=== PATIENT | female | born 1980 | race Caucasian/White ===

== ENCOUNTER 2016-12-20 21:02 | Emergency (ER) | payer BC, OTHER ==
[~2016-12-20] VITALS: Ht 172.7 cm; Wt 114.2 kg
[2016-12-20] MEDS ORDERED: B12 IM (21:32)
[2016-12-20 22:17] LABS: BLOOD UREA NITROGEN 9 mg/dL (7-18)
[2016-12-20 22:39] VITALS: BP 148/86
== END 2016-12-20 22:37 | disposition home or self-care (01) ==
LOC: ED 22:30
DX: J20.9 Acute bronchitis, unspecified (principal); E03.9 Hypothyroidism, unspecified
CPT/HCPCS: 36415; 71020; 80048; 82040; 85025; 93005; 99285

== ENCOUNTER 2019-10-11 12:28 | Observation (INO) | payer BC ==
[~2019-10-11] VITALS: Ht 170.2 cm; Wt 83.0 kg
[~2019-10-11 12:28] MED LIST: B12 IM
[2019-10-11 13:48] LABS: MICROSCOPIC NOT IND
--- NOTE | 2019-10-11 13:53 | NUR ---
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 STEADY GAIT. NO ACUTE DISTRESS NOTED.
--- NOTE | 2019-10-11 14:00 | NUR ---
PT PRESENTS TO ED WITH C/O RUQ PAIN X ALMOST A WEEK. BECAME SEVERE TODAY. SOME NAUSEA WITH NO VOMITING NOTED. MILD AMOUNT OF DISRESS WITH MODERATE DISCOMFORT NOTED. IV STARTED. POC DISCUSSED.
[2019-10-11 14:15] LABS: BASOPHILS # (AUTO) 0.06 x10^3/uL (0-0.1); BASOPHILS % (AUTO) 1 % (0-1); EOSINOPHILS # (AUTO) 0.09 x10^3/uL (0-0.4); EOSINOPHILS % (AUTO) 1 % (1-7); LYMPHOCYTES # (AUTO) 1.73 x10^3/uL (1-3.4); LYMPHOCYTES % (AUTO) 23 % (22-44); MD NO; MEAN CORPUSCULAR HEMOGLOBIN 27.3 pg (27.0-34.8); MEAN CORPUSCULAR HGB CONC 33.7 g/dL (32.4-35.8); MEAN CORPUSCULAR VOLUME 81.1 fL (80-100); MEAN PLATELET VOLUME 8.1 fL (7.4-10.4); MONOCYTES # (AUTO) 0.46 x10^3/uL (0.2-0.8); MONOCYTES % (AUTO) 6 % (2-9); NEUTROPHILS # (AUTO) 5.14 x10^3/uL (1.8-6.8); NEUTROPHILS % (AUTO) 69 % (42-75); PLATELET COUNT 286 x10^3/uL (130-400); RED CELL DISTRIBUTION WIDTH 15.4 % (9.6-15.2)
[2019-10-11 14:19] LABS: CULTURE INDICATED? NO
[2019-10-11 14:20] LABS: ALBUMIN 3.4 g/dL (3.4-5.0); ANION GAP 4 mmol/L (5-15); CALCIUM 9.2 mg/dL (8.5-10.1); CHLORIDE 112 mmol/L (98-107)
[2019-10-11 14:24] LABS: ALANINE AMINOTRANSFERASE 34 U/L (12-78); ALKALINE PHOSPHATASE 84 U/L (45-117); BILIRUBIN,TOTAL 0.6 mg/dL (0.2-1.0); CREATININE 0.53 mg/dL (0.55-1.02)
[2019-10-11] MEDS ORDERED: HYDROmorphone 2 MG/ML, 1ML IVPush PRN ×2 (14:30→17:00)
[2019-10-11] MEDS ORDERED: ONDANSETRON 2MG/ML, 2ML IVPush ONE (14:30)
[2019-10-11] MEDS ORDERED: SODIUM CHLORIDE FLUSH 10ML SYR IVF ONE (14:30)
[2019-10-11] MEDS ORDERED: SODIUM CHLORIDE 0.9% 1,000ML IVBOLUS ONE (14:30)
[2019-10-11] MEDS ORDERED: HYDROmorphone 1 MG/ML, 1ML INJ ONE (14:31)
[2019-10-11] MEDS ORDERED: ONDANSETRON 2MG/ML, 2ML ONE ×3 (14:32→17:42)
--- NOTE | 2019-10-11 14:40 | NUR ---
PT IN CT, UNABLE TO MEDICATE.
[2019-10-11] MEDS ORDERED: OMNIPAQUE 350 MG/ML, 100ML BOTTLE ONE (14:55)
[2019-10-11] MEDS ORDERED: CEFOTETAN PMX 1GM/50ML 50 ML IV ONE (15:30)
[2019-10-11] MEDS ORDERED: FENTANYL PF 250 MCG/5ML ONE (16:19)
[2019-10-11] MEDS ORDERED: MIDAZOLAM 1 MG/ML, 2ML ONE (16:19)
[2019-10-11] MEDS ORDERED: KETOROLAC 30 MG/1 ML ONE (16:19)
--- NOTE | 2019-10-11 16:20 | NUR ---
Report to Surgery
[2019-10-11] MEDS ORDERED: ROCURONIUM 10MG/ML,5ML ONE (16:21)
[2019-10-11] MEDS ORDERED: SUCCINYLCHOLINE 20 MG/ML, 10ML ONE (16:21)
[2019-10-11] MEDS ORDERED: NEOSTIGMINE 1 MG/ML, 10ML ONE (16:21)
[2019-10-11] MEDS ORDERED: EPINEPHRINE 1 MG/ML, 1ML ONE ×2 (16:21→16:24)
[2019-10-11] MEDS ORDERED: CEFAZOLIN 1,000 MG ONE (16:21)
[2019-10-11] MEDS ORDERED: DEXAMETHASONE 4 MG/ML, 1ML ONE (16:21)
[2019-10-11] MEDS ORDERED: BUPIVACAINE/PF 0.5% ONE (16:21)
[2019-10-11] MEDS ORDERED: GLYCOPYRROLATE 0.2MG/1ML, 5ML ONE (16:21)
[2019-10-11] MEDS ORDERED: PROPOFOL 10 MG/ML, 20ML ONE (16:21)
--- NOTE | 2019-10-11 16:34 | NUR ---
Patient to surgery.
[2019-10-11] MEDS ORDERED: MORPHINE SULFATE 4 MG/ML, 1ML IVPush PRN ×2 (17:00→19:30)
[2019-10-11] MEDS ORDERED: PROMETHAZINE 25 MG/ML, 1ML IV PRN (17:00)
[2019-10-11] MEDS ORDERED: FENTANYL PF 100 MCG/2ML IV PRN (17:00)
[2019-10-11] MEDS ORDERED: LABETALOL 5MG/ML, 20ML IV PRN (17:00)
[2019-10-11] MEDS ORDERED: hydrALAzine 20 MG/ML, 1ML IV PRN ×2 (17:00→21:30)
[2019-10-11] MEDS ORDERED: HALOPERIDOL 5 MG/ML IV PRN (17:00)
[2019-10-11] MEDS ORDERED: MEPERIDINE/PF 25MG/ML,1ML IVPush PRN (17:00)
[2019-10-11] MEDS ORDERED: OXYcodone 5 MG/5 ML ORAL.SOL UDC PO PRN (17:00)
[2019-10-11] MEDS ORDERED: SUGAMMADEX 200 MG/2 ML IVPush ONE (17:14)
[2019-10-11] MEDS ORDERED: MEPERIDINE/PF 25MG/ML,1ML ONE (17:33)
[2019-10-11] MEDS ORDERED: hydrALAzine 20 MG/ML, 1ML ONE (17:44)
[2019-10-11] MEDS ORDERED: PROMETHAZINE 25 MG/ML, 1ML ONE (17:54)
[2019-10-11 18:45] VITALS: BP 144/92
[2019-10-11] MEDS ORDERED: DIPHENHYDRAMINE 50 MG/ML, 1ML IVPush PRN (19:30)
[2019-10-11] MEDS ORDERED: ONDANSETRON 2MG/ML, 2ML IVPush PRN (19:30)
[2019-10-11] MEDS: KETOROLAC 30 MG/1 ML IV PRN (19:38)
[2019-10-11] MEDS ORDERED: LISI-420 PO (20:35)
[2019-10-11] MEDS ORDERED: ACETAMINOPHEN 325 MG TABLET PO PRN (21:30)
[2019-10-11] MEDS ORDERED: DIPHENHYDRAMINE 50 MG/ML, 1ML IV PRN (21:30)
[2019-10-11] MEDS ORDERED: DIPHENHYDRAMINE 25 MG CAPSULE PO PRN (21:30)
[2019-10-11] MEDS ORDERED: LISINOPRIL 20 MG TABLET PO SCH (21:30)
[2019-10-11] MEDS ORDERED: ACETAMINOPHEN 650 MG SUPP PR PRN (21:30)
[2019-10-11] MEDS: LACTATED RINGERS 1,000 ML IV SCH (21:44)
[2019-10-11] MEDS ORDERED: ENOXAPARIN 40 MG/0.4 ML SQ SCH (22:00)
[2019-10-11] MEDS: HYDROcodone/APAP 5/325 TABLET PO PRN (22:20)
[2019-10-11 23:05] VITALS: BP 148/91
[2019-10-12] MEDS: KETOROLAC 30 MG/1 ML IV PRN (02:14)
[2019-10-12 03:25] VITALS: BP 149/81
[2019-10-12] MEDS: LACTATED RINGERS 1,000 ML IV SCH (05:30)
[2019-10-12 06:51] VITALS: BP 144/84
[2019-10-12] MEDS ORDERED: MIDAZOLAM 1 MG/ML, 2ML ONE (07:36)
[2019-10-12] MEDS ORDERED: FENTANYL PF 250 MCG/5ML ONE (07:36)
[2019-10-12] MEDS ORDERED: ROCURONIUM 10MG/ML,5ML ONE (07:37)
[2019-10-12] MEDS ORDERED: PROPOFOL 10 MG/ML, 20ML ONE (07:37)
[2019-10-12] MEDS ORDERED: DEXAMETHASONE 4 MG/ML, 1ML ONE (07:39)
[2019-10-12] MEDS ORDERED: FENTANYL PF 100 MCG/2ML IV PRN (08:00)
[2019-10-12] MEDS ORDERED: LABETALOL 5MG/ML, 20ML IV PRN (08:00)
[2019-10-12] MEDS ORDERED: OXYcodone 5 MG/5 ML ORAL.SOL UDC PO PRN (08:00)
[2019-10-12] MEDS ORDERED: MEPERIDINE/PF 25MG/ML,1ML IVPush PRN (08:00)
[2019-10-12] MEDS ORDERED: PROMETHAZINE 25 MG/ML, 1ML IM PRN (08:00)
[2019-10-12] MEDS ORDERED: HYDROmorphone 2 MG/ML, 1ML IVPush PRN (08:00)
[2019-10-12] MEDS ORDERED: hydrALAzine 20 MG/ML, 1ML IV PRN (08:00)
[2019-10-12] MEDS ORDERED: ONDANSETRON 2MG/ML, 2ML IV PRN (08:00)
[2019-10-12] MEDS: HYDROcodone/APAP 5/325 TABLET PO PRN (08:18)
[2019-10-12] MEDS ORDERED: EPHEDRINE 50 MG/ML, 1ML ONE (08:24)
[2019-10-12] MEDS ORDERED: DOCU-131 PO (08:40)
[2019-10-12] MEDS ORDERED: ONDA4TAB13 PO (08:41)
[2019-10-12] MEDS ORDERED: HYDR-3240 PO (08:42)
== END 2019-10-12 08:52 | disposition home or self-care (01) ==
LOC: ED 16:04 → EDIP 17:31 → 4NE 18:40 → DCLOUNGE 10-12 08:48
PROVIDERS: ADMIT Surgery; ATTEND Surgery
DX: K35.30 Acute appendicitis with localized peritonitis, without perforation or gangrene (principal); E03.9 Hypothyroidism, unspecified; I10 Essential (primary) hypertension
CPT/HCPCS: 36415; 44970; 74177; 76830; 80053; 81003; 85025; 88304; 93005; 96365; 96372; 96375; 96376; 99285; G0378; J0171; J0330; J0360; J0690; J1100; J1170; J1200; J1650; J1885; J2175; J2250; J2270; J2405; J2550; J2704; J2710; J3010; J3490; J7030; J7120; Q9967; S0020

== ENCOUNTER 2020-09-28 00:51 | Emergency (ER) | payer BC ==
[~2020-09-28] VITALS: Ht 170.2 cm; Wt 68.4 kg
[~2020-09-28 00:51] MED LIST changes: +DOCU-131 PO; +HYDR-1067 PO; +LISI20TA21 PO; +ONDA4TAB13 PO
--- NOTE | 2020-09-28 01:00 | NUR ---
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
[2020-09-28] MEDS ORDERED: FAMOTIDINE 20 MG/2 ML IV ONE (01:30)
[2020-09-28] MEDS ORDERED: MORPHINE SULFATE 4 MG/ML, 1ML IVPush PRN (01:30)
[2020-09-28] MEDS ORDERED: SODIUM CHLORIDE 0.9% 1,000ML IVBOLUS ONE (01:30)
[2020-09-28] MEDS ORDERED: ONDANSETRON 2MG/ML, 2ML IVPush ONE (01:30)
[2020-09-28] MEDS ORDERED: ONDANSETRON 2MG/ML, 2ML ONE (01:31)
[2020-09-28] MEDS ORDERED: MORPHINE SULFATE 4 MG/ML, 1ML ONE (01:31)
[2020-09-28] MEDS ORDERED: FAMOTIDINE 20 MG/2 ML ONE (01:32)
[2020-09-28 01:41] VITALS: BP 159/93
[2020-09-28 01:52] LABS: BASOPHILS % (AUTO) 1 % (0-1); EOSINOPHILS % (AUTO) 0 % (1-7); LYMPHOCYTES % (AUTO) 42 % (22-44); MEAN CORPUSCULAR HEMOGLOBIN 27.7 pg (27.0-34.8); MEAN CORPUSCULAR HGB CONC 34.8 g/dL (32.4-35.8); MEAN PLATELET VOLUME 8.2 fL (7.4-10.4); MONOCYTES % (AUTO) 12 % (2-9); NEUTROPHILS % (AUTO) 45 % (42-75); PLATELET COUNT 177 x10^3/uL (130-400); RED BLOOD COUNT 6.44 x10^6/uL (3.82-5.3); RED CELL DISTRIBUTION WIDTH 14.1 % (9.6-15.2)
[2020-09-28 01:55] LABS: ALANINE AMINOTRANSFERASE 106 U/L (12-78); ANION GAP 13 mmol/L (5-15); CALCIUM 9.5 mg/dL (8.5-10.1); CHLORIDE 106 mmol/L (98-107); CREATININE 0.72 mg/dL (0.55-1.02)
[2020-09-28 01:57] LABS: ALKALINE PHOSPHATASE 120 U/L (45-117); BILIRUBIN,TOTAL 0.8 mg/dL (0.2-1.0); TOTAL PROTEIN 8.6 g/dL (6.4-8.2)
[2020-09-28 02:09] LABS: MD SCAN
--- NOTE | 2020-09-28 03:55 | NUR ---
pt given f/u and d/c instructions and v/u. pt swabbed for rapid covid test prior to d/c. tolerated well, and sample walked to the lab. pt ambulated out.
== END 2020-09-28 04:03 | disposition home or self-care (01) ==
LOC: ED 03:15
DX: U07.1 COVID-19 (principal); E86.0 Dehydration; R11.2 Nausea with vomiting, unspecified; E86.9 Volume depletion, unspecified; R19.7 Diarrhea, unspecified; R00.0 Tachycardia, unspecified; I11.9 Hypertensive heart disease without heart failure; E03.9 Hypothyroidism, unspecified
CPT/HCPCS: 36415; 71045; 80053; 83690; 85025; 87635; 93005; 96361; 96374; 96375; 99285; J2270; J2405; J7030